=== PATIENT | male | born 1980 | race Caucasian/White ===

== ENCOUNTER 2019-11-22 14:32 | Inpatient (IN) | payer OTHER ==
[~2019-11-22] VITALS: Ht 198.1 cm; Wt 104.5 kg
[2019-11-22 15:04] LABS: BASOPHILS 0.4 % (0-2); EOSINOPHILS 4.4 % (0-7); HEMATOCRIT 38.4 % (42.0-54.0); IMMATURE GRANULOCYTES 0.2 % (0-5); LYMPHOCYTES 18.2 % (15-50); MCH 27.8 pg (26.0-34.0); MCHC 33.9 g/dL (31.0-37.0); MCV 82.1 fL (80.0-100.0); MEAN PLATELET VOLUME 9.1 fL (7.4-10.4); MONOCYTES 9.4 % (2-11); NEUTROPHILS 67.4 % (40-80); PLATELET COUNT 172 10x3/uL (130-400); RBC 4.68 10x6/uL (4.20-6.10); RDW 12.4 % (11.5-14.5); WBC 5.4 10x3/uL (4.8-10.8)
[2019-11-22 15:50] LABS: CALC OSMOLALITY 279 mosm/kg (275-300); CALCIUM 9.2 mg/dL (8.5-10.1); CARBON DIOXIDE 32.9 mmol/L (21.0-32.0); CHLORIDE - SERUM 100 mmol/L (98-107); CREATININE - SERUM 0.9 mg/dL (0.6-1.3); GLUCOSE 98 mg/dL (74-106); POTASSIUM - SERUM 4.1 mmol/L (3.5-5.1); SODIUM 140 mmol/L (136-145); UREA NITROGEN 16 mg/dL (7-18); eGFR NON AFRICAN AMERICAN > 90 mL/min (90-120)
[2019-11-22 15:57] LABS: ALBUMIN 3.3 g/dL (3.4-5.0); ALKALINE PHOSPHATASE 144 U/L (30-120); ALT (SGPT) 53 U/L (10-68); BILIRUBIN - TOTAL 1.03 mg/dL (0.2-1.3); CREATINE KINASE 84 UL (21-232); PROTEIN - SERUM 7.1 g/dL (6.4-8.2)
[2019-11-22 17:30] VITALS: BP 141/91
--- NOTE | 2019-11-22 17:30 | NUR ---
FELEX BRACE AND LIMB HER TO APPLY TLSO BACK BRACE.
[2019-11-22 20:00] VITALS: BP 101/66
--- NOTE | 2019-11-22 20:00 | NUR ---
PT LYING IN BED WITHOUT DISTRESS, MOTHER AT BEDSIDE. WEARING TSLO BRACE. IV LEFT FA. STARTED NS INFUSING @ [facility] WITH [employer]IL [employer]ESSOR. 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 STATE PAIN 4/10 IN BACK AT THIS TIME. PROVIDED PT URINAL, INFORMED WE NEEDED URINE SAMPLE AND TO CALL ONCE HE HAS VOIDED. PT VERBALIZED UNDERSTANDING. DENIES NEEDS AT THIS TIME. CL IN REACH, WILL CTM
[2019-11-22 22:03] VITALS: BMI 26.6
[2019-11-22 22:55] LABS: KETONE NEGATIVE (NEGATIVE); NITRITE NEGATIVE (NEGATIVE); UROBILINOGEN 4 mg/dL (NORMAL)
[2019-11-22 22:56] LABS: BILIRUBIN NEGATIVE (NEGATIVE)
[2019-11-23] VITALS: BP 125/80
[2019-11-23 04:00] VITALS: BP 107/69
[2019-11-23 06:48] LABS: BASOPHILS 0.2 % (0-2); EOSINOPHILS 0 % (0-7); HEMATOCRIT 38.6 % (42.0-54.0); HEMOGLOBIN 13.1 g/dL (13.5-17.5); IMMATURE GRANULOCYTES 0.2 % (0-5); LYMPHOCYTES 14.9 % (15-50); MCH 27.6 pg (26.0-34.0); MCHC 33.9 g/dL (31.0-37.0); MCV 81.3 fL (80.0-100.0); MEAN PLATELET VOLUME 9.4 fL (7.4-10.4); NEUTROPHILS 80.7 % (40-80); PLATELET COUNT 185 10x3/uL (130-400); RBC 4.75 10x6/uL (4.20-6.10); RDW 12.3 % (11.5-14.5)
[2019-11-23 07:09] LABS: CALCIUM 9.4 mg/dL (8.5-10.1); CARBON DIOXIDE 29.1 mmol/L (21.0-32.0); CHLORIDE - SERUM 102 mmol/L (98-107); GLUCOSE 103 mg/dL (74-106); MAGNESIUM - SERUM 1.9 mg/dL (1.8-2.4); PHOSPHOROUS 4.1 mg/dL (2.5-4.9); SODIUM 140 mmol/L (136-145); eGFR NON AFRICAN AMERICAN 87 mL/min (90-120)
[2019-11-23 07:10] LABS: CALC OSMOLALITY 281 mosm/kg (275-300); POTASSIUM - SERUM 5.1 mmol/L (3.5-5.1); UREA NITROGEN 22 mg/dL (7-18)
[2019-11-23 07:44] VITALS: BP 125/81
[2019-11-23 11:46] VITALS: BP 139/83
[2019-11-23 16:21] VITALS: BP 135/81
[2019-11-23 20:00] VITALS: BP 108/61
[2019-11-23 21:57] VITALS: Ht 198.1 cm; Wt 104.5 kg
[2019-11-24 04:00] VITALS: BP 99/60
[2019-11-24 06:19] LABS: BASOPHILS 0.1 % (0-2); EOSINOPHILS 2.8 % (0-7); HEMATOCRIT 36.6 % (42.0-54.0); HEMOGLOBIN 12.4 g/dL (13.5-17.5); IMMATURE GRANULOCYTES 0.1 % (0-5); LYMPHOCYTES 26.5 % (15-50); MCH 27.6 pg (26.0-34.0); MCHC 33.9 g/dL (31.0-37.0); MCV 81.3 fL (80.0-100.0); MEAN PLATELET VOLUME 9.3 fL (7.4-10.4); NEUTROPHILS 65.5 % (40-80); RDW 12.6 % (11.5-14.5)
[2019-11-24 06:21] LABS: PLATELET COUNT 230 10x3/uL (130-400); WBC 7.1 10x3/uL (4.8-10.8)
[2019-11-24 06:36] LABS: CALC OSMOLALITY 280 mosm/kg (275-300); CALCIUM 9.1 mg/dL (8.5-10.1); CARBON DIOXIDE 28.9 mmol/L (21.0-32.0); CHLORIDE - SERUM 104 mmol/L (98-107); CREATININE - SERUM 1.1 mg/dL (0.6-1.3); GLUCOSE 88 mg/dL (74-106); MAGNESIUM - SERUM 1.8 mg/dL (1.8-2.4); PHOSPHOROUS 3.3 mg/dL (2.5-4.9); SODIUM 140 mmol/L (136-145); UREA NITROGEN 22 mg/dL (7-18); eGFR NON AFRICAN AMERICAN 78 mL/min (90-120)
[2019-11-24 06:37] LABS: POTASSIUM - SERUM 3.9 mmol/L (3.5-5.1)
--- NOTE | 2019-11-24 07:55 | NUR ---
RESTING IN BED WITH EYES CLOSED, NO S/S OF DISTRESS. MOM AT THE BEDSIDE. IV LOCATED TO LEFT FA CURRENTLY SL. DENIES NEEDS AT THIS TIME, WILL CONT TO MONITOR.
[2019-11-24 08:00] VITALS: BP 109/58
[2019-11-24] MEDS ORDERED: HYDROCODON-ACE1 EA10 PO (11:06)
--- NOTE | 2019-11-24 12:48 | NUR ---
PT DC`D VIA WHEELCHAIR, HOSPITAL STAFF AND FAMILY.
== END 2019-11-24 12:48 | disposition home or self-care (01) | DRG 552 ==
LOC: D.ER 14:32 → D.MS 17:01
PROVIDERS: Emergency Medicine; ADMIT Family Medicine; ATTEND Family Medicine
DX: S32.059A Unspecified fracture of fifth lumbar vertebra, initial encounter for closed fracture (principal); S32.10XA Unspecified fracture of sacrum, initial encounter for closed fracture; V49.9XXA Car occupant (driver) (passenger) injured in unspecified traffic accident, initial encounter